=== PATIENT | male | born 1935 | race Caucasian/White ===

== ENCOUNTER 2017-10-30 22:35 | Emergency (ER) | payer OTHER ==
[2017-10-30] MEDS ORDERED: Al Hydrox/Mg Hydrox/Simet LIQ* 30 ML UDC PO ONE (23:07)
[2017-10-30] MEDS ORDERED: Lidocaine 2% VISCOUS* 15 ML UDC PO ONE (23:08)
[2017-10-30] MEDS ORDERED: Pantoprazole IV* 40 MG IV ONE (23:09)
[2017-10-30 23:57] LABS: ABS Basophils 0 10^3/ul (0-0.2); ABS Eosinophils 0.2 10^3/ul (0-0.6); ABS Lymphocytes 1.1 10^3/ul (1.0-4.8); ABS Monocytes 0.5 10^3/ul (0-0.8); ABS Neutrophils 6.3 10^3/ul (1.5-7.7); ABS Nucleated RBC 0 10^3/ul; Eosinophil % 2.5 % (0-6); Hematocrit 34 % (42-52); Hemoglobin 11.3 g/dl (14.0-18.0); Lymphocyte % 13.3 % (25-47); Mean Corpuscular HGB Conc 33 g/dl (31-36); Mean Corpuscular Hemoglobin 32 pg (27-31); Mean Corpuscular Volume 95 fL (80-94); Mean Platelet Volume 8.5 um3 (7.4-10.4); Nucleated Red Blood Cells % 0; Platelet Count 225 10^3/ul (150-450); Red Blood Count 3.57 10^6/ul (4.0-5.4); Red Cell Distribution Width 13 % (10.5-15); White Blood Count 8.1 10^3/ul (3.5-10.8)
[2017-10-31 00:14] LABS: EGFR Non-African American 73.2 (>60)
--- NOTE | 2017-10-31 01:23 | ED ---
Phoenix Reyes Rebecca, scribed for Vickie Bird MD on 10/30/17 at 2305 . HPI Chest Pain - HPI Summary HPI Summary: Pt is an 82 y/o M BIBA who presents to ED c/o chest pain. Pt reports the pain is described as "severe heartburn" and that it has been present for about 3 weeks. Pain is localized to the central chest and does not radiate to the back. Additionally c/o vomiting. In the last 3 weeks he has been to [facility] in [place] 4 times, most recently being discharged 2 days ago after being there for about a week. He was being seen for similar symptoms, described as "severe heartburn." Confirms he has an endoscopy done which was negative. PMHx GERD and A Fib - is not on blood thinners as he does not want to take them. - History of Current Complaint Chief Complaint: EDDysrhythmPalp Time Seen by Provider: 10/30/17 22:50 Hx Obtained From: Patient Onset/Duration: Started Weeks Ago - 3 weeks, Still Present Current Severity: None Pain Intensity: 0 Pain Scale Used: 0-10 Numeric Chest Pain Location: Mid Sternal Chest Pain Radiates: No Character: Other: - "severe heartburn" Associated Signs and Symptoms: Positive: Vomiting - Allergy/Home Medications Allergies/Adverse Reactions: Allergies Allergy/AdvReac Type Severity Reaction Status Date / Time No Known Allergies Allergy Verified 10/30/17 22:57 Home Medications: Home Medications Unobtainable [Unobtainable] 10/31/17 [History Confirmed 10/31/17] PMH/Surg Hx/FS Hx/Imm Hx Endocrine/Hematology History: Denies: Hx Anticoagulant Therapy Cardiovascular History: Reports: Hx Atrial Fibrillation GI History: Reports: Hx Gastroesophageal Reflux Disease Infectious Disease History: No Infectious Disease History: Denies: Traveled Outside the [place] in Last 30 Days - Family History Known Family History: Positive: Unknown - States "you're looking at the whole family" - Social History Alcohol Use: None Substance Use Type: Reports: None Smoking Status (MU): Never Smoked Tobacco Review of Systems Negative: Fever Positive: Chest Pain Positive: Vomiting All Other Systems Reviewed And Are Negative: Yes Physical Exam - Summary Physical Exam Summary: VITAL SIGNS: Reviewed. GENERAL: ~Patient is a well-developed and nourished male who is lying comfortable in the stretcher. Patient is not in any acute respiratory distress. HEAD AND FACE: No signs of trauma. No ecchymosis, hematomas or skull depressions. No sinus tenderness. EYES: PERRLA, EOMI x 2, No injected conjunctiva, no nystagmus. EARS: Hearing grossly intact. Ear canals and tympanic membranes are within normal limits. MOUTH: Oropharynx within normal limits. NECK: Supple, trachea is midline, no adenopathy, no JVD, no carotid bruit, no c- spine tenderness, neck with full ROM. CHEST: Symmetric, no tenderness at palpation LUNGS: Clear to auscultation bilaterally. No wheezing or crackles. CVS: Irregular heart rhythm, normal rate, S1 and S2 present, no murmurs or gallops appreciated. ABDOMEN: Soft, non-tender. No signs of distention. No rebound no guarding, and no masses palpated. Bowel sounds are normal. EXTREMITIES: FROM in all major joints, no edema, no cyanosis or clubbing. NEURO: Alert and oriented x 3. No acute neurological deficits. Speech is normal and follows commands. SKIN: Dry and warm Triage Information Reviewed: Yes Vital Signs On Initial Exam: Initial Vitals Temp Pulse Resp BP Pulse Ox 97.8 F 103 22 144/100 96 10/30/17 22:48 10/30/17 22:48 10/30/17 22:48 10/30/17 22:48 10/30/17 22:48 Vital Signs Reviewed: Yes Diagnostics - Vital Signs Vital Signs Temp Pulse Resp BP Pulse Ox 10/30/17 22:48 97.8 F 103 22 144/100 96 - Laboratory Result Diagrams: 10/30/17 23:45 10/30/17 23:45 Lab Statement: Any lab studies that have been ordered have been reviewed, and results considered in the medical decision making process. - EKG 2240 Cardiac Rate: Tachycardia - 101 bpm EKG Rhythm: Atrial Fibrillation ST Segment: Non-Specific EKG Interpretation: Non-specific T wave changes in the inferior leads. Re-Evaluation - Re-Evaluation First Eval Re-Evaluation Time: 01:02 Change: Improved Comment: Pt is sleeping comfortably. Chest Pain Course/Dx - Course Assessment/Plan: Pt is an 82 y/o M BIBA who presents to ED c/o chest pain described as "severe heartburn," present for about 3 weeks. Pain is localized to the central chest and does not radiate to the back. Additionally c/o vomiting. In the last 3 weeks he has been to [facility] in [place] 4 times, most recently being discharged 2 days ago after being there for about a week. He was being seen for similar symptoms, described as "severe heartburn." Confirms he has an endoscopy done which was negative. PMHx GERD and A Fib - is not on blood thinners. EKG is sinus tachy at 101 bpm with a fib and nonspecific T wave changes in the inferior leads. Bloodwork was done. Pt will be D/C to home with Dx of GERD. He understands and agrees. - Diagnoses Provider Diagnoses: GERD (gastroesophageal reflux disease) Discharge - Sign-Out/Discharge Documenting (check all that apply): Discharge - Discharge - Discharge Plan Condition: Stable Disposition: HOME Patient Education Materials: Gastroesophageal Reflux Disease (ED) Referrals: Hira Young MD [Medical Doctor] - 3 Days [facility] [place] [facility]FERRAL [Outside] - 3 Days Additional Instructions: Follow up with your primary care and a GI. RETURN TO EMERGENCY DEPARTMENT FOR ANY NEW OR WORSENING SYMPTOMS The documentation as recorded by the Phoenix barajas Rebecca accurately reflects the service I personally performed and the decisions made by me, Vickie Bird MD.
[2017-10-31 01:26] VITALS: BP 116/56
== END 2017-10-31 01:25 | disposition home or self-care (01) ==
LOC: ED 22:35
DX: K21.9 Gastro-esophageal reflux disease without esophagitis (principal); I48.91 Unspecified atrial fibrillation
CPT/HCPCS: 36415; 80053; 82150; 83690; 83735; 84484; 85025; 85730; 86140; 87040; 93005; 96374; 99283; A9270-GY